=== PATIENT | female | born 1985 | race Caucasian/White ===

== ENCOUNTER 2020-06-12 08:03 | Outpatient (REF) | payer BC, SELFPAY | END 2020-06-12 08:04 | disposition home or self-care (01) | LOC: HO.SCI 08:03 | DX: Z13.89 Encounter for screening for other disorder (principal) ==

== ENCOUNTER 2020-07-04 08:06 | Outpatient (REF) | payer BC, SELFPAY ==
--- NOTE | ~2020-07-04 | MR_ITS ---
MR THORACIC SPINE WITHOUT AND WITH IV CONTRAST CLINICAL INFORMATION: Paraparesis. COMPARISON: None available. TECHNIQUE: MRI of the thoracic spine was obtained using routine sequences with and without contrast. Intravenous contrast: Gadavist 10 mL. FINDINGS: There are 12 rib-bearing thoracic type vertebral bodies. Hypoplastic ribs at the lowermost thoracic type segment. There is no bone marrow edema. There are no acute fractures. Bone marrow signal is homogenous and normal. No suspicious enhancing intraosseous lesions. There is no pathologic intrathecal enhancement. Accounting for artifact no cord signal changes. There are no significant soft tissue findings. There are no significant thoracic disc herniations. There is no severe central canal stenosis and there is no severe foraminal stenosis within the thoracic spine. MR/MR thoracic spine wo/w con IMPRESSION: Unremarkable MRI of the thoracic spine.
== END 2020-07-04 08:07 | disposition home or self-care (01) ==
LOC: HO.MRI 08:06
PROVIDERS: PCP Internal Medicine; Visit Provider Psychiatry & Neurology Neurology
DX: G82.20 Paraplegia, unspecified (principal)
CPT/HCPCS: 72157; A9585

== ENCOUNTER 2020-07-10 16:26 | Outpatient (REF) | payer BC, SELFPAY ==
[2020-07-10 18:53] LABS: Vitamin B12 307 pg/mL (200-900)
[2020-07-11 09:21] LABS: Lyme Abs Screen <0.90 index
[2020-07-11 10:11] LABS: Syphilis Screen Nonreactive (Nonreactive)
[2020-07-12 15:41] LABS: Anti Nuclear Antibody Screen NEGATIVE (NEGATIVE)
== END 2020-07-10 16:27 | disposition home or self-care (01) ==
LOC: HO.LAB 16:26
PROVIDERS: PCP Internal Medicine; Visit Provider Psychiatry & Neurology Neurology
DX: G82.20 Paraplegia, unspecified (principal); R20.2 Paresthesia of skin
CPT/HCPCS: 36415; 82607; 82746; 86038; 86039; 86618; 86780

== ENCOUNTER 2020-07-16 08:15 | Outpatient (REF) | payer BC, SELFPAY ==
[2020-07-19 01:02] LABS: Arsenic, 24H Urine <10 mcg/L (<=80); Cadmium, 24H Urine <0.5 mcg/L (<=5.0); Lead, 24H Urine <10 mcg/L (<80); Mercury, 24H Urine <4 mcg/L (<=20)
== END 2020-07-16 08:16 | disposition home or self-care (01) ==
LOC: HO.LNP 08:15
PROVIDERS: Visit Provider Psychiatry & Neurology Neurology
DX: G82.20 Paraplegia, unspecified (principal); R20.2 Paresthesia of skin
CPT/HCPCS: 82175; 82300; 83655; 83825

== ENCOUNTER 2021-09-24 15:55 | Outpatient (REF) | payer BC, SELFPAY ==
--- NOTE | ~2021-09-24 | MR_ITS ---
EXAMINATION: MR BRAIN WITHOUT AND WITH CONTRAST CLINICAL INFORMATION: Hyperreflexia and white matter changes. COMPARISON: MRI scan of the brain [facility] 05/14/2020. TECHNIQUE: Multiplanar, multisequence MRI of the brain was obtained before and after the intravenous administration of 9 mL Gadavist. FINDINGS: No diffusion abnormalities are identified to suggest an acute or subacute infarct. No mass effect or midline shift is seen. The ventricles and sulci are normal in size. The study redemonstrates a few nonspecific foci of hyperintense T2 and FLAIR signal in the periventricular and subcortical white matter, most prominent adjacent to the trigone of the right lateral ventricle. No extra-axial fluid collections are seen. The brainstem appears normal. On postcontrast imaging, there is no abnormal parenchymal or leptomeningeal enhancement. No pathologic magnetic susceptibility artifact is identified on the gradient refocused acquisition. The cerebellar tonsils have normal contour and position, and the craniocervical junction appears normal. Marrow signal and midline structures are normal. The major intracranial flow-voids at the level of the teller of [place] are preserved. The dural venous sinus flow-voids are maintained. The mastoid air cells and paranasal sinuses are well-aerated. MR/MR head/brain wo/w con IMPRESSION: 1. There are no acute bleeds or infarcts. There are no masses or areas of abnormal enhancement. The study redemonstrates nonspecific white matter changes.
== END 2021-09-24 15:56 | disposition home or self-care (01) ==
LOC: HO.MRI 15:55
PROVIDERS: Visit Provider Psychiatry & Neurology Neurology
DX: R29.2 Abnormal reflex (principal); G93.49 Other encephalopathy
CPT/HCPCS: 70553; A9585